=== PATIENT | female | born 1980 | race Asian ===

== ENCOUNTER 2024-01-27 16:11 | Emergency (ER) | payer BC, SELFPAY ==
--- NOTE | ~2024-01-27 | CT_ITS ---
EXAMINATION: CT ANGIOGRAM HEAD CT ANGIOGRAM NECK CLINICAL INFORMATION: Dizziness, syncope COMPARISON: None. TECHNIQUE: Test bolus sequences followed by intravenous administration 70 mL of Omnipaque 350. Helical imaging was performed in the axial plane from the aortic arch to the skull vertex. Delayed postcontrast imaging of the head was also performed. The data was processed at the geospatial technologist's workstation for generation of MIP sequences. Angled MIPs and volume rendered reformatted images were also generated at an offline 3D workstation. Stenoses are assessed in accordance with Serrano et al. Quantification of Carotid Stenosis on CT Angiography. AJR 2006. 27(1):13-19. [address] CT examination was performed using dose optimization techniques as appropriate, variously including the following: *Automated exposure control *Adjustment of mA and/or kV according to patient size (this includes techniques or standardized protocols for targeted exams where dose is matched to indication/reason for exam; i.e. extremities or head) *Use of iterative reconstruction technique DLP: 2262 mGy-cm FINDINGS: CT HEAD: The ventricles and sulci are normal in size and configuration without significant volume loss or hydrocephalus. There is no abnormal attenuation within the brain parenchyma. No territorial loss of yeung-white differentiation. No acute intracranial hemorrhage or extra-axial fluid collection. No mass lesion, significant mass effect, or herniation pattern. No pathologic intra-axial enhancement or regional oligemia. The orbits are grossly normal. Paranasal sinuses and mastoid air cells are well aerated. Osseous structures are intact. CTA HEAD: No hemodynamically significant stenosis or occlusion in the anterior or posterior circulation. No aneurysms and no high flow vascular malformations. Timing of the contrast bolus allows assessment of the major dural venous sinuses, which all opacify normally CTA NECK: Classic 3 vessel branching pattern of the aortic arch. Nondiagnostic assessment of the aortic arch and great vessels. The common carotid arteries are widely patent. The carotid bifurcations and bilateral internal carotid arteries are normal. The right vertebral artery is dominant. The right vertebral artery origin is patent. Nondiagnostic assessment of the left vertebral artery origin throughout proximal V2 segment. Otherwise, both vertebral arteries are widely patent throughout their extracranial cervical course. CT NECK: Significant enlargement of the main pulmonary artery that can be correlated for pulmonary hypertension. Elongated and ossified left greater than right styloid processes can be correlated for [place] syndrome. Impacted right posterior mandibular molar. Reversal of the cervical lordosis may be positional. CT/CT angio head neck IMPRESSION: 1. No acute intracranial findings. 2. No acute arterial occlusion or hemodynamically significant stenosis within the head or neck. 3. Significant enlargement of the main pulmonary artery that can be correlated for pulmonary hypertension. 4. Elongated and ossified left greater than right styloid processes can be correlated for [place] syndrome.
[2024-01-27 16:19] VITALS: BP 92/58; PULSE 64; RESP 14; TEMP 36.8; O2SAT 100; BMI 21.1
--- NOTE | 2024-01-27 16:20 | ED_ITS ---
HPI - Dizziness General Chief Complaint: Dizziness Stated Complaint: fell 01/26 dizziness Time Seen by Provider: 01/27/24 16:29 Source: patient History of Present Illness ED Provider: Jocelynn AVILA Narrative: 43-year-old female with past medical history of GERD presenting for dizziness and nausea. 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 Her symptoms were worse with movement and she had difficulty ambulating. She states that she walked to the bathroom where she passed out. She thinks that she lowered herself to the ground however is not entirely sure if she hit her head or not. She denies head pain, neck pain, chest pain however she does endorse shortness of breath. She denies recent illness, chills, fevers, urinary symptoms, hematochezia. Patient states that she had a similar episode to this a few years back however she can not tell me more about what occurred at that time. MD elicited complaint: dizziness Onset (ago): hour(s) Timing: sudden onset Description: room spinning Related Data Allergies Allergy/AdvReac Type Severity Reaction Status Date / Time No Known Allergies Allergy Verified 01/27/24 16:21 Review of Systems 2 Review of Systems: Patient endorses dizziness, shortness of breath, weakness, nausea Patient denies head pain, neck pain, chest pain, abdominal pain, urinary symptoms, vomiting Yes all other systems are reviewed and are negative [facility] Past Medical History Attestation statement: The following information was validated with the patient. [facility] Narrative: Acid reflux Social History Social History Unable to assess alcohol history related to: Unable to respond Smoked in Last 30 Days: No Use of substances other than those prescribed or required for medical reasons: No Advance Directives: No Advance Directives Information Provided: No Do you have a plan to hurt others: No Plan Physical Exam 2 Vital Signs: Vital Signs: Last Vital Signs Temp 97.4 F 01/27/24 20:49 Pulse 72 01/27/24 20:49 Resp 19 01/27/24 20:49 BP 114/52 L 01/27/24 20:49 Pulse Ox 97 01/27/24 20:49 O2 Del Method Room Air 01/27/24 20:49 BMI result Body Mass Index 21.1 No focal neurologic deficits appreciated; no nystagmus appreciated Head normocephalic atraumatic; no midline C-spine tenderness Bilateral TMs clear Lungs clear auscultation bilaterally; normal S1-S2 regular rate rhythm Abdomen soft nontender nondistended Course Course Course Narrative: This is a Rapid Medical Examination (RME) performed by Jocelyn Cotter PA-C in triage. Full HPI, ROS, assessment and treatment plan per primary provider in the Main ED. 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 dizziness is constant, room spinning sensation. reports subsequent syncopal episode at work lasting approx 5 min. unsure of head strike. not on AC. + AOX3. pale appearing. perrla. no palpable skull fracture. unsteady gait noted. Plan: labs, ekg, ct head Reevaluation(s) Reevaluation #1: Patient was evaluated in triage and labs and imaging were ordered I added additional lab work and CTA head and neck Time: 16:43 Reevaluation #2: Patient is still experiencing vertigo while lying in bed. She states it does get worse with movement however she is unable to walk because of her dizzy she got I have ordered MRI I spoke with on-call neurologist Dr. Santoyo who agreed with MRI and recommended Solu-Medrol in case her symptoms are secondary to MS Time: 20:03 Medications Administered Generic Name Dose Route Start Last Admin Trade Name Freq PRN Reason Stop Dose Admin Magnesium Sulfate 2 gm in 50 mls @ 25 mls/hr 01/27/24 20:01 01/27/24 20:11 Magnesium Sulfate/H2o IV 01/27/24 22:00 25 mls/hr ONCE ONE Administration Discontinued Medications Generic Name Dose Route Start Last Admin Trade Name Freq PRN Reason Stop Dose Admin Sodium Chloride 1,000 mls @ 999 mls/hr 01/27/24 16:45 01/27/24 19:16 Ns IV 01/27/24 17:45 Infused .Q1H1M LIBERTAD Infusion Methylprednisolone Sodium 50 mls @ 50 mls/hr 01/27/24 20:01 01/27/24 20:51 Succinate 500 mg/ Sodium IV 01/27/24 21:00 50 mls/hr Chloride ONCE ONE Administration Iohexol 100 ml 01/27/24 19:03 01/27/24 19:04 Iohexol 350 Mg/Ml 100 Ml Infus..Btl IV 01/27/24 19:04 70 ml ONCE ONE Administration Meclizine HCl 25 mg 01/27/24 16:35 01/27/24 17:23 Meclizine Hcl 25 Mg Tablet PO 01/27/24 16:36 25 mg ONCE ONE Administration Metoclopramide HCl 10 mg 01/27/24 20:03 01/27/24 20:11 Metoclopramide Hcl 10 Mg/2 Ml Vial IVPUSH 01/27/24 20:04 10 mg ONCE ONE Administration Ondansetron HCl 4 mg 01/27/24 16:35 01/27/24 17:23 Ondansetron Hcl 4 Mg/2 Ml Vial IVPUSH 01/27/24 16:36 4 mg ONCE ONE Administration Medical Decision Making Medical Decision Making [facility] Narrative: Given sudden onset of symptoms I am concerned for the following; peripheral vertigo (BPPV, labyrinthitis/vestibular neuritis), electrolyte/metabolic disturbance, orthostatic hypotension I am also considering central vertigo and PE given hypotension however less likely given sxs Lab work and imaging studies ordered I ordered a D-dimer given patient's hypotension upon arrival and radiologist noting enlarged pulmonary artery on CTA head/neck--> dimer negative; patient has no respiratory symptoms; Reassessment patient is still experiencing significant vertigo. Of concern for posterior circulation stroke and ordered an MRI I spoke with on-call neurologist Dr. Santoyo who agreed with MRI and recommended Solu-Medrol I spoke to patient about admission and MRI she initially agreed however when the transport came to take her to MRI she declined and stated she did not want stay in the hospital and that she want to go home. She was nervous about the MRI and I explained to her that it was safe that I can give her meds to help her calm down however she adamantly declined and said she would go home and come back if she did not feel better. I told her I was concerned for stroke possible MS and that if she goes home that could result in permanent disability or . She understands these risks. Patient will be leaving AMA Differential Diagnosis Differential Diagnoses: The differential diagnosis associated with the presentation includes BPPV, labyrinthitis/vestibular neuritis, electrolyte/metabolic disturbance, anemia, anemia, orthostatic hypotension Also concern for central vertigo and multiple sclerosis Lab Data MDM Lab Attestation statement: I reviewed the patient's lab results. Hemoglobin of 8.8; UA unremarkable; negative for COVID and flu; negative beta hCG 01/27/24 17:19 01/27/24 17:19 Labs: Lab Results 01/27/24 01/27/24 01/27/24 Range/Units 17:19 18:01 18:04 WBC 5.1 (4.8-10.8) X10*3/uL RBC 4.55 (4.20-5.50) X10*6/uL Hgb 8.8 L (12.0-16.0) g/dl Hct 27.8 L (37.0-47.0) % MCV 61.1 L (80.0-98.0) fL MCH 19.3 L (27.0-33.0) pg MCHC 31.7 (31.0-35.0) g/dl RDW 20.8 H (11.0-16.0) % Plt Count 266 (160-400) X10*3/uL MPV Not Reportable Immature Gran % (Auto) 0.4 (0.0-0.4) % Neut % (Auto) 64.3 (45-73) % Lymph % (Auto) 29.5 (20-40) % [place] % (Auto) 4.0 (2-11) % Eos % (Auto) 1.2 (0-4) % Baso % (Auto) 0.6 (0-2) % Lymph # (Auto) 1.5 (1.2-4.9) X10*3/uL [place] # (Auto) 0.2 (0.1-1.2) X10*3/uL Eos # (Auto) 0.1 (0.0-0.4) X10*3/uL Baso # (Auto) 0.0 (0.0-0.2) X10*3/uL Abs Immat Gran (auto) 0.02 (0.00-0.03) X10*3/uL Absolute Neuts (auto) 3.3 (2.0-8.3) x10*3/uL Absolute Nucleated RBC 0.000 (0.0-0.012) X10*3/uL Nucleated RBC % (auto) 0.0 (0.0-0.2) /100WBC Smear Tech's Comments VERIFIED PT 11.8 (11.1-13.3) SEC INR 1.0 (0.9-1.1) D-Dimer High Sensitivty NG/ML Sodium 141 (135-145) mmol/L Potassium 3.9 (3.3-5.1) mmol/L Chloride 109 H (96-108) mmol/L Carbon Dioxide 27 (22-29) mmol/L Anion Gap 9 L (12-20) BUN 14 (9-16) mg/dL Creatinine 0.69 (0.5-1.4) mg/dL Estim Creat Clear Calc 100.3 Estimated GFR > 60 POC Glucose 87 (60-115) mg/dL Random Glucose 116 H (60-115) mg/dL Lactic Acid 0.6 (0.5-2.0) mmol/L Calcium 8.8 (8.4-10.2) mg/dL Magnesium 1.8 (1.6-2.6) mg/dL Total Bilirubin 0.3 (0.0-1.0) mg/dL AST 15 (5-31) U/L ALT 9 (0-31) U/L Alkaline Phosphatase 40 (39-117) U/L Total Creatine Kinase 59 (26-140) U/L Troponin I High Sens < 2.7 (<3.5-17.0) ng/L Total Protein 6.9 (6.5-8.0) g/dL Albumin 3.8 (3.5-5.0) g/dL TSH 0.62 (0.32-4.0) uIU/mL Beta HCG, Quant < 2 mIU/mL Urine Color Yellow Urine Appearance Clear Urine pH 7.5 (5.0-9.0) Ur Specific [place] 1.010 (1.005-1.025) Urine Protein Negative (Neg-Trace) mg/dL Urine Glucose (UA) Negative (Negative) mg/dL Urine Ketones Negative (Negative) mg/dL Urine Blood Negative (Negative) Urine Nitrite Negative (Negative) Ur Leukocyte Esterase Negative (Negative) Influenza Type A (PCR) NEGATIVE (Negative) Influenza Type B (PCR) NEGATIVE (Negative) RSV RNA Qual (PCR) NEGATIVE (Negative) SARS-CoV-2 RNA (RT-PCR) NEGATIVE (Negative) 01/27/24 Range/Units 20:43 WBC (4.8-10.8) X10*3/uL RBC (4.20-5.50) X10*6/uL Hgb (12.0-16.0) g/dl Hct (37.0-47.0) % MCV (80.0-98.0) fL MCH (27.0-33.0) pg MCHC (31.0-35.0) g/dl RDW (11.0-16.0) % Plt Count (160-400) X10*3/uL MPV Immature Gran % (Auto) (0.0-0.4) % Neut % (Auto) (45-73) % Lymph % (Auto) (20-40) % [place] % (Auto) (2-11) % Eos % (Auto) (0-4) % Baso % (Auto) (0-2) % Lymph # (Auto) (1.2-4.9) X10*3/uL [place] # (Auto) (0.1-1.2) X10*3/uL Eos # (Auto) (0.0-0.4) X10*3/uL Baso # (Auto) (0.0-0.2) X10*3/uL Abs Immat Gran (auto) (0.00-0.03) X10*3/uL Absolute Neuts (auto) (2.0-8.3) x10*3/uL Absolute Nucleated RBC (0.0-0.012) X10*3/uL Nucleated RBC % (auto) (0.0-0.2) /100WBC Smear Tech's Comments PT (11.1-13.3) SEC INR (0.9-1.1) D-Dimer High Sensitivty < 150 NG/ML Sodium (135-145) mmol/L Potassium (3.3-5.1) mmol/L Chloride (96-108) mmol/L Carbon Dioxide (22-29) mmol/L Anion Gap (12-20) BUN (9-16) mg/dL Creatinine (0.5-1.4) mg/dL Estim Creat Clear Calc Estimated GFR POC Glucose (60-115) mg/dL Random Glucose (60-115) mg/dL Lactic Acid (0.5-2.0) mmol/L Calcium (8.4-10.2) mg/dL Magnesium (1.6-2.6) mg/dL Total Bilirubin (0.0-1.0) mg/dL AST (5-31) U/L ALT (0-31) U/L Alkaline Phosphatase (39-117) U/L Total Creatine Kinase (26-140) U/L Troponin I High Sens (<3.5-17.0) ng/L Total Protein (6.5-8.0) g/dL Albumin (3.5-5.0) g/dL TSH (0.32-4.0) uIU/mL Beta HCG, Quant mIU/mL Urine Color Urine Appearance Urine pH (5.0-9.0) Ur Specific [place] (1.005-1.025) Urine Protein (Neg-Trace) mg/dL Urine Glucose (UA) (Negative) mg/dL Urine Ketones (Negative) mg/dL Urine Blood (Negative) Urine Nitrite (Negative) Ur Leukocyte Esterase (Negative) Influenza Type A (PCR) (Negative) Influenza Type B (PCR) (Negative) RSV RNA Qual (PCR) (Negative) SARS-CoV-2 RNA (RT-PCR) (Negative) Independent Interpretation I performed an independent interpretation of an: EKG and CT Scan Interpretation: No STEMI seen on EKG I do not appreciate any significant head bleed or LVO on CT scan Radiology Impression Discussion of test interpretation with radiology: I have reviewed the radiologist's reading. Radiologist Impression: No acute intracranial findings; enlargement of main pulmonary artery Independent Historian No intracranial pathology however enlarged pulmonary artery Discharge Plan Discharge Clinical Impression: Vertigo Patient Disposition: Left Against Medical Advice Instructions: Vertigo (ED) Additional Instructions: Please come back at your earliest convenience Stand Alone Forms: Against Medical Advice Print Language: [place]
--- NOTE | 2024-01-27 16:24 | ECG_ITS ---
Test Reason : diziness Blood Pressure : / mmHG Vent. Rate : 066 BPM Atrial Rate : 066 BPM P-R Int : 168 ms QRS Dur : 102 ms QT Int : 400 ms P-R-T Axes : 043 056 019 degrees QTc Int : 419 ms Normal sinus rhythm Incomplete right bundle branch block Borderline ECG No previous ECGs available Referred By: Kristen Cotter Electronically Signed By:ZOIE FLOWERS MD
[2024-01-27] MEDS: Meclizine HCl 25 MG TABLET PO (17:23)
[2024-01-27] MEDS: 0.9 % Sodium Chloride 1,000 ML 999 ML IV (17:23)
[2024-01-27] MEDS: ondansetron HCL 4 MG/2 ML VIAL IVPUSH (17:23)
[2024-01-27 17:45] LABS: Lactic Acid 0.6 mmol/L (0.5-2.0)
[2024-01-27 17:58] LABS: Hematocrit 27.8 % (37.0-47.0); Monocytes Absolute Auto 0.2 X10*3/uL (0.1-1.2); Red Blood Count 4.55 X10*6/uL (4.20-5.50); Red Cell Distribution Width 20.8 % (11.0-16.0); SCAN SMEAR FLAG 1
[2024-01-27 17:59] LABS: Alanine Aminotransferase 9 U/L (0-31); Albumin Level 3.8 g/dL (3.5-5.0); Alkaline Phosphatase 40 U/L (39-117); Anion Gap 9 (12-20); Aspartate Amino Transferase 15 U/L (5-31); Bilirubin Total 0.3 mg/dL (0.0-1.0); Blood Urea Nitrogen 14 mg/dL (9-16); Calcium 8.8 mg/dL (8.4-10.2); Carbon Dioxide 27 mmol/L (22-29); Chloride 109 mmol/L (96-108); Creatinine Clr Calc Pharmacy 100.3; Estimated Glomerular Filt Rate > 60; Glucose Random 116 mg/dL (60-115); HCG Quantitative < 2 mIU/mL; Magnesium 1.8 mg/dL (1.6-2.6); Potassium 3.9 mmol/L (3.3-5.1); Prothrombin Time 11.8 SEC (11.1-13.3); Sodium 141 mmol/L (135-145); Total Protein 6.9 g/dL (6.5-8.0); Troponin-I High Sensitivity < 2.7 ng/L (<3.5-17.0)
[2024-01-27 18:00] LABS: Basophils Percent Auto 0.6 % (0-2); Eosinophils Absolute Auto 0.1 X10*3/uL (0.0-0.4); Eosinophils Percent Auto 1.2 % (0-4); Hemoglobin 8.8 g/dl (12.0-16.0); Imm Gran Abs Auto 0.02 X10*3/uL (0.00-0.03); Imm Gran Pct Auto 0.4 % (0.0-0.4); Lymphocytes Absolute Auto 1.5 X10*3/uL (1.2-4.9); Lymphocytes Percent Auto 29.5 % (20-40); MANUAL DIFF FLAG SCAN; Mean Corpuscular HGB Conc 31.7 g/dl (31.0-35.0); Mean Corpuscular Hemoglobin 19.3 pg (27.0-33.0); Neutrophils Absolute Auto 3.3 x10*3/uL (2.0-8.3); Neutrophils Percent Auto 64.3 % (45-73); Platelet Count 266 X10*3/uL (160-400); White Blood Count 5.1 X10*3/uL (4.8-10.8)
[2024-01-27 18:07] LABS: Glucose, Whole Blood 87 mg/dL (60-115)
[2024-01-27 18:10] LABS: Appearance Urine Clear; Color Urine Yellow; Glucose Urine UA Negative (Negative); Leukocyte Esterase Urine Negative (Negative); Nitrite Urine Negative (Negative); PH 7.5 (5.0-9.0); Urine Blood Negative (Negative); Urine Ketones Negative (Negative); Urine Protein Negative (Neg-Trace)
[2024-01-27 18:11] LABS: TSH reflex Free T4 0.62 uIU/mL (0.32-4.0)
[2024-01-27 18:12] LABS: Influenza A PCR NEGATIVE (Negative); Influenza B PCR NEGATIVE (Negative); Resp Syncy Virus RNA Qual PCR NEGATIVE (Negative); SARS COV2 PCR INHOUSE NEGATIVE (Negative)
[2024-01-27 18:17] VITALS: BP 115/71; PULSE 62; RESP 17; O2SAT 98
[2024-01-27 18:28] LABS: Mean Corpuscular Volume 61.1 fL (80.0-98.0); PLT ABN DIST 1
[2024-01-27 18:31] LABS: SLIDE REVIEW VERIFIED
[2024-01-27] MEDS: iohexoL 350 MG/ML 100 ML INFUS..BTL IV (19:04)
--- NOTE | 2024-01-27 19:16 | PC.NURSE ---
assumed care of pt at 1900 . pt just returned from CT scan.
[2024-01-27 19:42] VITALS: BP 125/82; PULSE 60; RESP 15; TEMP 36.7; O2SAT 100
[2024-01-27] MEDS: Metoclopramide HCl 10 MG/2 ML VIAL IVPUSH (20:11)
[2024-01-27] MEDS: Magnesium Sulfate/H2O 2 GM/50 ML PIGGYBACK IV (20:11)
[2024-01-27 20:49] VITALS: BP 114/52; PULSE 72; RESP 19; TEMP 36.3; O2SAT 97
[2024-01-27] MEDS: methylPREDNISolone Sod Succ 500 MG in 0.9 % Sodium Chloride 50 ML 50 MG IV (20:51)
--- NOTE | 2024-01-27 20:55 | PC.NURSE ---
pt is refusing mri scan, says she had one before and was too scared could not continue the test. MD at bedside explaining risks to pt, offering anxiety meds, however pt declining. pt states she will return back to ED if symptoms worsen at home. pt is A&Ox4 able to make own decisions. pt understands risks of leaving etc. per MD still give mag sulfate and solumedrol as ordered per aug.
[2024-01-27 21:03] LABS: D Dimer High Sensitivity < 150 NG/ML
[2024-01-27 21:41] VITALS: BP 113/58; PULSE 67; RESP 16; TEMP 36.4; O2SAT 100
[2024-01-27 21:46] VITALS: BP 113/58; PULSE 67; RESP 16; TEMP 36.4; O2SAT 100
== END 2024-01-27 21:47 | disposition left against medical advice (07) ==
PROVIDERS: Physician Assistant Medical; Emergency Provider Student in an Organized Health Care Education/Training Program
DX: R42 Dizziness and giddiness (principal); R55 Syncope and collapse; R06.02 Shortness of breath; I95.1 Orthostatic hypotension; Z03.818 Encounter for observation for suspected exposure to other biological agents ruled out; Z53.29 Procedure and treatment not carried out because of patient's decision for other reasons
CPT/HCPCS: 0241U; 36415; 70496; 70498; 80053; 81003; 82550; 82947; 83605; 83735; 84443; 84484; 84702; 85025; 85379; 85610; 93005; 99285; J2405; J2765; J2919; J3475; Q9967

== ENCOUNTER → 2024-01-27 16:24 | Outpatient (BNV) | payer BC, SELFPAY | PROVIDERS: Emergency Provider Student in an Organized Health Care Education/Training Program; Visit Provider Internal Medicine Cardiovascular Disease | DX: R42 Dizziness and giddiness (principal) | CPT/HCPCS: 93010 ==